=== PATIENT | female | born 1960 | race Caucasian/White ===

== ENCOUNTER 2017-04-20 19:39 | Emergency (ER) | payer MEDICARE, MEDICAID ==
[~2017-04-20] VITALS: Ht 170.2 cm; Wt 61.2 kg
[~2017-04-20 19:39] MED LIST: CLON0.1T PO; CYAN1TAB17 PO; DULO60CA45 PO; FAMO20TA8 PO; LISI10TA5 PO; LORA-259 PO; OMEP20CA10 PO; PARO10TA86 PO; PHEN100C4 PO; QUET300T3 PO; SUCR1TAB31 PO; TRAZ-147 PO
--- NOTE | 2017-04-20 19:46 | NUR ---
TO BED 11 BIB FRIEND C/O SOB X20 MIN [employer]PERVIS[employer]. PT AAOX4 NO ACUTE DISTRESS NOTED, RESP EVEN AND UNLABORED. PT APPEARS ANXIOUS. PT ADMITS TO DRINKING ALCOHOL TODDAY. PLACE PT ON CARDIAC MONITORING, CONTINUOUS POX. PENDING ER MD BAEZ.
--- NOTE | 2017-04-20 19:54 | NUR ---
MANUEL REPLACER AT BEDSIDE TO NESTOR SU.
[2017-04-20] MEDS ORDERED: THIAMINE HCL 100 MG TABLET PO ONE (20:00)
[2017-04-20] MEDS ORDERED: IV NS 0.9% 1,000 ML BAG IV ONE (20:00)
[2017-04-20] MEDS ORDERED: THIAMINE HCL 100 MG TABLET ONE (20:02)
--- NOTE | 2017-04-20 20:06 | NUR ---
PT MEDICATED ORDERED.
[2017-04-20 20:14] LABS: BASOPHILS % (AUTO) 1.2 % (0.0-2.0); EOSINOPHILS # (AUTO) 0.1 /CMM (0.0-0.7); EOSINOPHILS % (AUTO) 1.7 % (0.0-6.0); HEMATOCRIT 37 % (33-45); HEMOGLOBIN 12.8 g/dL (11.5-14.8); LYMPHOCYTES # (AUTO) 2.1 /CMM (0.8-4.8); LYMPHOCYTES % (AUTO) 51.7 % (20.0-44.0); MEAN CORPUSCULAR HEMOGLOBIN 29 PG (26.0-33.0); MEAN CORPUSCULAR HGB CONC 35 g/dl (31.0-36.0); MEAN CORPUSCULAR VOLUME 84 fL (82-100); MONOCYTES # (AUTO) 0.5 /CMM (0.1-1.30); MONOCYTES % (AUTO) 11.7 % (2.0-12.0); NEUTROPHILS # (AUTO) 1.4 /CMM (1.8-8.9); NEUTROPHILS % (AUTO) 33.7 % (43.0-81.0); PLATELET COUNT (AUTO) 245 /CMM (150-450); RDW COEFFICIENT OF VARIATION 23.5 (11.5-15.0); WHITE BLOOD COUNT (AUTO) 4.1 K/uL (4.3-11.0)
--- NOTE | 2017-04-20 20:15 | NUR ---
RADIOLOGY AT BEDSIDE FOR CHEST XRAY.
[2017-04-20 20:17] LABS: CALCIUM, SERUM 8.8 mg/dL (8.5-10.1); CARBON DIOXIDE 29 mmol/L (21-32); CHLORIDE 104 mmol/L (98-107); CREATININE 0.7 mg/dL (0.6-1.3); GLUCOSE 111 mg/dL (74-106); POTASSIUM 4.1 mmol/L (3.5-5.1); SODIUM SERUM 143 mmol/L (136-145); UREA NITROGEN, BLOOD 11 mg/dL (7-18)
[2017-04-20 20:25] LABS: ACETAMINOPHEN < 1 ug/ml (10-30); ALANINE AMINOTRANSFERASE 26 U/L (12-78); ALBUMIN 4.2 g/dL (3.4-5.0); ALCOHOL, BLOOD 449 mg/dL (0-0); ALKALINE PHOSPHATASE 87 U/L (46-116); ASPARTATE AMINOTRANSFERASE 42 U/L (15-37); BILIRUBIN,DIRECT 0.1 mg/dL (0.0-0.2); BILIRUBIN,TOTAL 0.3 mg/dL (0.2-1.0); SALICYLATE 1.1 mg/dL (2.8-20.0); TOTAL PROTEIN, SERUM 7.8 g/dL (6.4-8.2)
--- NOTE | 2017-04-20 20:25 | NUR ---
PT STATES STILL UNABLE TO PROVIDE URINE SAMPLE AT THIS TIME. WILL TRY AGAIN LATER.
[2017-04-20] MEDS ORDERED: IV NS 0.9% 250 ML IV ONE (21:11)
[2017-04-20] MEDS ORDERED: IOHEXOL-350 100 ML VIAL IV ONE (21:11)
--- NOTE | 2017-04-20 21:21 | NUR ---
PT TO RADIOLOGY FOR CT PULMONARY ANGIO VIA [facility].
[2017-04-20 23:23] LABS: APPEARANCE,URINE CLEAR (CLEAR); BILIRUBIN,URINE NEGATIVE (NEGATIVE); BLOOD, URINE NEGATIVE Ery/uL (NEGATIVE); COLOR,URINE YELLOW (YELLOW); KETONES,URINE NEGATIVE (NEGATIVE); LEUKOCYTE ESTERASE ,URINE NEGATIVE (NEGATIVE); NITRITE, URINE NEGATIVE (NEGATIVE); PROTEIN,URINE NEGATIVE (NEGATIVE); UGLUCOSE NEGATIVE (NEGATIVE); UROBILINOGEN,URINE 0.2 EU/dL (0.2)
--- NOTE | 2017-04-20 23:30 | NUR ---
PT AWAKE. VERBALLY RESPONSIVE. DR CALHOUN IN TO SEE PT. VITALS STABLE.
[2017-04-21] MEDS ORDERED: CHLORDIAZEPOXIDE HCL 25 MG CAPSULE PO ONE
[2017-04-21] MEDS ORDERED: CHLORDIAZEPOXIDE HCL 25 MG CAPSULE ONE (00:02)
--- NOTE | 2017-04-21 00:07 | NUR ---
BOYFRIENMihaela RIBERA # [phone]
--- NOTE | 2017-04-21 00:45 | NUR ---
CALLED PT BOYFRIEND, NO ANSWER.
--- NOTE | 2017-04-21 01:34 | NUR ---
CALLED PT BOYFRIEND, NO ANSWER.
--- NOTE | 2017-04-21 02:19 | NUR ---
CALLED PT BOYFRIEND, NO ANSWER.
--- NOTE | 2017-04-21 04:37 | NUR ---
CALLED PT BOYFRIEND, NO ANSWER.
--- NOTE | 2017-04-21 06:38 | NUR ---
CALLED PT BOYFRIEND, NO ANSWER.
--- NOTE | 2017-04-21 06:57 | NUR ---
IV removed. Catheter intact and site benign. Pressure and 4x4 applied to site. No bleeding noted. Patient discharged to home in stable condition. Written and verbal after care instructions given. Patient verbalizes understanding of instruction. ambulatory with a steady gait noted. pt aaox4 no acute distress noted, resp even and unlabored.
[2017-04-21 06:59] VITALS: BP 124/63
== END 2017-04-21 06:59 | disposition home or self-care (01) ==
LOC: ER 19:42
DX: F10.229 Alcohol dependence with intoxication, unspecified (principal); R06.00 Dyspnea, unspecified; I10 Essential (primary) hypertension
CPT/HCPCS: 36415; 71045; 71275; 80048; 80076; 80305; 80329; 81001; 84484; 85025; 85378; 93005; 96360; 99285; A4606; G0480 ×2; J7050; Q9967; 81000-TC